=== PATIENT | female | born 1975 | race Caucasian/White ===

== ENCOUNTER 2022-01-22 07:42 | Emergency (ER) | payer OTHER ==
[2022-01-22 08:37] LABS: BASOPHIL 0.9 % (0-2); EOSINOPHIL 2.8 % (0-5); HCT 46.6 % (37.0-47.0); HGB 15.2 g/dl (12.5-16.0); LYMPHOCYTE 24.6 % (15-48); MCH 28.1 pg (25.0-31.0); MCHC 32.6 g/dL (32.0-36.0); MCV 86.1 fL (78.0-100.0); MONOCYTE 6.9 % (0-12); MPV 9.8 fL (6.0-9.5); NEUTROPHIL 64.3 % (41-80); NRBC 0; PLT 552 K/uL (150-400); RBC 5.41 M/uL (4.20-5.40); RDW 14.2 % (11.5-14.0); WBC 15.5 K/uL (4.0-10.5)
[2022-01-22 08:51] LABS: BILIRUBIN - TOTAL 0.5 mg/dL (0.2-1.0); BUN/CREAT RATIO (CALC) 20.5 RATIO; CREATININE 0.83 mg/dL (0.51-0.95); GLOBULIN (CALCULATION) 4.4 g/dL; POTASSIUM 3.9 mmol/L (3.5-5.1); TOTAL PROTEIN 8.4 g/dL (6.4-8.2)
[2022-01-22 09:10] LABS: CORONAVIRUS 2019 SARS-COV-2 NEGATIVE (NEGATIVE); INFLUENZA A NAA NEGATIVE (NEGATIVE)
[2022-01-22 10:30] LABS: BILIRUBIN NEGATIVE (NEGATIVE); BLOOD 1+ Ery/uL (NEGATIVE); CLARITY CLEAR (CLEAR); COLOR YELLOW (YELLOW); GLUCOSE (U) NORMAL (NORMAL); LEUKOCYTES NEGATIVE Leu/uL (NEGATIVE); NITRITE NEGATIVE (NEGATIVE); PROTEIN NEGATIVE (NEGATIVE); SPECIFIC GRAVITY 1.025 (1.001-1.030); UROBILINOGEN 0.2 mg/dL (0.2-1.0)
[2022-01-22 10:43] LABS: BACTERIA TRACE; MUCOUS MODERATE
[2022-01-22] MEDS ORDERED: ANTIVERT25 MG PO (11:08)
[2022-01-22] MEDS ORDERED: AMOXICILLIN875 MG PO (11:08)
[2022-01-22] MEDS ORDERED: ONDANSETRON ODT4 MG PO (11:08)
== END 2022-01-22 11:22 | disposition home or self-care (01) ==
LOC: FER 07:42
PROVIDERS: Emergency Medicine
DX: H81.399 Other peripheral vertigo, unspecified ear (principal); H83.09 Labyrinthitis, unspecified ear; F17.210 Nicotine dependence, cigarettes, uncomplicated; Z20.822 Contact with and (suspected) exposure to COVID-19; Z28.310 Unvaccinated for COVID-19
CPT/HCPCS: 36415; 70450; 80053; 81001; 85025; J2405; U0002